=== PATIENT | female | born 1940 | race Caucasian/White ===

== ENCOUNTER 2019-08-09 10:09 | Outpatient (CLI) | payer OTHER | END 2019-08-09 15:07 | disposition home or self-care (01) | LOC: TOM 10:09 | DX: K62.89 Other specified diseases of anus and rectum (principal); K59.4 Anal spasm ==

== ENCOUNTER 2024-09-21 12:37 | Outpatient (CLI) | payer OTHER | END 2024-09-21 12:53 | disposition home or self-care (01) | LOC: MRI 12:37 | PROVIDERS: ATTEND Psychiatry & Neurology Neurology | DX: I63.81 Other cerebral infarction due to occlusion or stenosis of small artery (principal); G30.8 Other Alzheimer's disease | CPT/HCPCS: 70551 ==